=== PATIENT | male | born 1990 | race Caucasian/White ===

== ENCOUNTER 2020-11-02 07:43 | Day surgery (SDC) | payer OTHER ==
[~2020-11-02] VITALS: Ht 177.8 cm; Wt 89.4 kg
[~2020-11-02 07:43] MED LIST: NS 1,000 ML IV ONE; OMEP40CA97 PO
[2020-11-02] MEDS ORDERED: LIDOCAINE 2% 100MG/5ML SDV (FOR ANES.) As Ordered ONE (08:22)
[2020-11-02] MEDS ORDERED: propofoL 200 MG/20 ML VIAL As Ordered ONE (08:22)
--- NOTE | 2020-11-02 08:25 | ROOR ---
Patient Name: Cody Lock Procedure Date: 11/02/2020 8:13 AM Date of : 1990 Age: 30 Room: [facility] Gender: Male Note Status: Finalized Procedure: Upper Endoscopy + Biopsies Indications: Epigastric abdominal pain, Nausea Providers: John Gilbert MD Referring MD: ARI HANCOCK MD Requesting Provider: Medicines: Monitored Anesthesia Care Complications: No immediate complications. Procedure: Pre-Anesthesia Assessment: - The heart rate, respiratory rate, oxygen saturations, blood pressure, adequacy of pulmonary ventilation, and response to care were monitored throughout the procedure. The Endoscope was introduced through the mouth, and advanced to the second part of duodenum. The upper GI endoscopy was accomplished without difficulty. The patient tolerated the procedure well. Findings: The Z-line was regular and was found 40 cm from the incisors. No other significant abnormalities were identified in a careful examination of the stomach. Biopsies were taken with a cold forceps in the gastric antrum for Helicobacter pylori testing. The exam of the duodenum was otherwise normal. Impression: - Z-line regular, 40 cm from the incisors. - Biopsies were taken with a cold forceps for Helicobacter pylori testing. - The examination was otherwise normal. Recommendation: - Patient has a contact number available for emergencies. The signs and symptoms of potential delayed complications were discussed with the patient. Return to normal activities tomorrow. Written discharge instructions were provided to the patient. - High fiber diet. - Discharge patient to home. - Follow an antireflux regimen. - Continue present medications. - Await pathology results. - Telephone GI clinic for pathology results in 1 week. - Return to referring physician. - The findings and recommendations were discussed with the patient. Procedure Code(s): --- Professional --- 85083, Esophagogastroduodenoscopy, flexible, transoral; with biopsy, single or multiple Diagnosis Code(s): --- Professional --- R10.13, Epigastric pain R11.0, Nausea CPT copyright 2019 [employer] [place] [employer]. All rights reserved. The codes documented in this report are preliminary and upon field agronomist review may be revised to meet current compliance requirements. John Gilbert MD John Gilbert MD 11/02/2020 8:25:26 AM Electronically signed by John Gilbert MD Number of Addenda: 0 Note Initiated On: 11/02/2020 8:13 AM Estimated Blood Loss: Estimated blood loss: none.
[2020-11-02 08:45] VITALS: BP 123/58
== END 2020-11-02 09:02 | disposition home or self-care (01) ==
LOC: M OPP 07:43
PROVIDERS: ATTEND Internal Medicine Gastroenterology
DX: R10.2 Pelvic and perineal pain (principal); R11.0 Nausea

== ENCOUNTER 2020-11-04 20:49 | Emergency (ER) | payer OTHER ==
[~2020-11-04] VITALS: Ht 175.3 cm; Wt 90.9 kg
[~2020-11-04 20:49] MED LIST changes: -NS 1,000 ML IV ONE
[2020-11-04 20:50] VITALS: BP 163/89
[2020-11-04 21:28] LABS: BASO % 0.4 % (0.0-1.0); EOS # 0.1 10^3/uL (0.0-0.5); EOS % 1.6 % (0.0-3.0); HEMOGLOBIN 15.1 g/dl (13.5-17.5); LYMPH # 2.3 10^3/uL (1.5-5.0); LYMPH % 32.5 % (24.0-44.0); MEAN CORPUSCULAR HEMOGLOBIN 28.5 pg (27.0-33.0); MEAN CORPUSCULAR HGB CONC 33.6 g/dl (32.0-36.5); MEAN CORPUSCULAR VOLUME 85.1 fl (80.0-96.0); MONO # 0.6 10^3/uL (0.0-0.8); MONO % 7.8 % (0.0-5.0); NEUTROPHILS % 57.6 % (36.0-66.0); PLATELET COUNT, AUTOMATED 179 10^3/uL (150-450); RED BLOOD COUNT 5.29 10^6/uL (4.30-6.10)
[2020-11-04 21:57] LABS: ALBUMIN 4.9 GM/DL (3.2-5.2); ALT/SGPT 22 U/L (12-78); BILIRUBIN,DIRECT < 0.1 MG/DL (0.0-0.2); BILIRUBIN,TOTAL 0.4 MG/DL (0.2-1.0); LIPASE 89 U/L (73-393); TOTAL PROTEIN 7.5 GM/DL (6.4-8.2)
--- OUTSIDE RECORDS SUMMARY | 2020-11-04 22:45 | CCD | Continuity of Care Document ---
Author Author Cody GILBERT M.D. Organization Unknown Address [address] [place] [id number] Phone [phone] Care Team Providers Care Overhead Irrigator Name Role Phone Doug Liang [facility] [phone] Problems Active Problems Provider Date Nausea John Gilbert M.D. Onset: 10/22/19 21 Social History Type Date Description Comments Sex Unknown ETOH Use Occasionally Tobacco Use Start: Unknown Patient has never smoked Allergies, Adverse Reactions, Alerts Description No Known Drug Allergies Medications Active Medications SIG Qnty Indications Ordering Provide r Date Omeprazole 40mg Capsules DR 1 cap by mouth every morning 90caps John Gilbert M.D. [address] Peres Immunizations Description No Information Available Vital Signs Date Vital Result Comment 10/22/2020 9:28am Height 70 inches 5'10" Weight 199.00 lb BP Systolic 133 mmHg BP Diastolic 75 mmHg Heart Rate 71 /min BMI (Body Mass Index) 28.6 kg/m2 Weight 90.266 kg Body Temperature 97.9 F Results Description No Information Available Procedures Description No Information Available Medical Devices Description No Information Available Encounters Type Date Location Provider Dx Diagnosis Office Visit 10/22/2020 9:00a Main Office John Gilbert M.D. R 12 Heartburn Assessments Date Code Description Provider 10/22/2020 R12 Heartburn John carter M.D. Plan of Treatment Future Appointment(s):* 11/02/2020 10:00 am - John Gilbert M.D. 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 Positive epigastric discomfort. No vomiting. Positive nausea. He is improved on a ppi. Plan:1. Egd + bx.2. Omeprazole 40 mgs po qam. Functional Status Description No Information Available Mental Status Description No Information Available Referrals Refer to Reason for Referral Status Appt Date John Gilbert M.D. Created [address] [place] [id number] [phone]
--- OUTSIDE RECORDS SUMMARY | 2020-11-04 22:45 | CCD | Continuity of Care Document ---
Author Author Cody GILBERT M.D. Organization Unknown Address [address] [place] [id number] Phone [phone] Care Team Providers Care Antenna Installer Name Role Phone Doug Li[facility] Problems Active Problems Provider Date Nausea John [...] Medical Devices Description No Information Available Encounters Description No Information Available Assessments Date Code Description Provider 10/22/2020 R12 [...] Description No Information Available Referrals Refer to Dr Reason for Referral Status Appt Date John Gilbert M.D. Created [address] [place] [address] [phone]
--- OUTSIDE RECORDS SUMMARY | 2020-11-04 22:45 | CCD ---
Author [facility] Organization [facility] Address Unknown Phone Unavailable Care Team Providers Care Implementation Services Analyst Name Role Phone Edna Gilbert MD Unavailable Unavailable Edna Gilbert MD Unavailable Unavailable Edna Gilbert MD Unavailable Unavailable Edna Gilbert MD Unavailable Unavailable Edna Gilbert MD Unavailable Unavailable Edna Gilbert MD Unavailable Unavailable Edna Gilbret MD Unavailable Unavailable Edna Gilbert MD Unavailable Unavailable Edna Gilbert MD Unavailable Unavailable Edna Gilbert MD Unavailable Unavailable Edna Gilbert MD Unavailable Unavailable Edna Gilbert MD Unavailable Unavailable Edna Gilbert MD Unavailable Unavailable Edna Gilbert MD Unavailable Unavailable Edna Gilbert MD Unavailable Unavailable Edna Gilbert MD Unavailable Unavailable Edna Gilbert MD Unavailable Unavailable Edna Gilbert MD Unavailable Unavailable Edna Gilbert MD Unavailable Unavailable Edna Gilbert MD Unavailable Unavailable Edna Gilbert MD Unavailable Unavailable Edna Gilbert MD Unavailable Unavailable Edna Gilbert MD Unavailable Unavailable Edna Gilbert MD Unavailable Unavailable Edna Gilbert MD Unavailable Unavailable Edna Gilbert MD Unavailable Unavailable Edna Gilbert MD Unavailable Unavailable Edna Gilbert MD Unavailable Unavailable Edna Gilbert MD Unavailable Unavailable Edna Gilbert MD Unavailable Unavailable Edna Gilbert MD Unavailable Unavailable Edna Gilbert MD Unavailable Unavailable Edna Gilbert MD Unavailable Unavailable Edna Gilbert MD Unavailable Unavailable Edna Gilbert MD Unavailable Unavailable Edna Gilbert MD Unavailable Unavailable Ofelia, S John MD Unavailable Unavailable Ofelia, S John MD Unavailable Unavailable Ofelia, S John MD Unavailable Unavailable Ofelia, S John MD Unavailable Unavailable Ofelia, S John MD Unavailable Unavailable Ofelia, S John MD Unavailable Unavailable Ofelia, S John MD Unavailable Unavailable Ofelia, S John MD Unavailable Unavailable Ofelia, S John MD Unavailable Unavailable Ofelia, S John MD Unavailable Unavailable Ofelia, S John MD Unavailable Unavailable Ofelia, S John MD Unavailable Unavailable Cristina, J Hollis PA-C Unavailable Unavailable Cristina, J Hollis PA-C Unavailable Unavailable Cristina, J Hollis PA-C Unavailable Unavailable Cristina, J Hollis PA-C Unavailable Unavailable Cristina, J Hollis PA-C Unavailable Unavailable Cristina, J Hollis PA-C Unavailable Unavailable Cristina, J Hollis PA-C Unavailable Unavailable Cristina, J Hollis PA-C Unavailable Unavailable Cristina, J Hollis PA-C Unavailable Unavailable Cristina, J Hollis PA-C Unavailable Unavailable Cristina, J Hollis PA-C Unavailable Unavailable Re-disclosure Warning The records that you are about to access may contain information from federally-assisted alcohol or drug abuse programs. If such information is present, then the following federally mandated warning applies: This information has been disclosed to you from records protected by federal confidentiality rules (42 CFR part 2). The federal rules prohibit you from making any further disclosure of this information unless further disclosure is expressly permitted by the written consent of the person to whom it pertains or as otherwise permitted by 42 CFR part 2. A general authorization for the release of medical or other information is NOT sufficient for this purpose. The Federal rules restrict any use of the information to criminally investigate or prosecute any alcohol or drug abuse patient.The records that you are about to access may contain highly sensitive health information, the redisclosure of which is protected by Article 27-F of the [facility] Public Health law. If you continue you may have access to information: Regarding HIV / AIDS; Provided by facilities licensed or operated by the [facility] Office of Mental Health; or Provided by the [facility] Office for People With Developmental Disabilities. If such information is present, then the following [facility] mandated warning applies: This information has been disclosed to you from confidential records which are protected by state law. State law prohibits you from making any further disclosure of this information without the specific written consent of the person to whom it pertains, or as otherwise permitted by law. Any unauthorized further disclosure in violation of state law may result in a fine or skilled nursing sentence or both. A general authorization for the release of medical or other information is NOT sufficient authorization for further disc losure. Encounters Encounter Providers Location Date Indications Data Source(s ) Outpatient Attender: John Gilbert MD Main Office 10/22/2020 08:00:00 AM EST [facility] ([facility]) Emergency Attender: Hollis Evans PA-C 02:49:00 PM EST - 09/01/2020 05:50:00 PM [facility] Patient discharged. Medications Medication Brand Name Start Date Product Form Dose Route Admi nistrative Instructions Pharmacy Instructions Status Indications Reaction Description Data Source(s) Omeprazole 40 MG Delayed Release Oral Capsule Omeprazole 10/22/2020 12:00:00 AM EST [facility] Esomeprazole 40 MG Delayed Release Oral Capsule ESOMEPRAZOLE MAGNESIUM 09/11/2020 12:00:00 AM EST capsule,delayed release(DR/EC) 30 TAKE ONE CAPSULE BY MOUTH EVERY DAY TAKE ONE CAPSULE BY MOUTH EVERY DAY SOLD: 09/11/2020 [facility] Insurance Providers Payer name Policy type / Coverage type Policy ID Covered republican ID Covered republican's relationship to rosales Policy Rosales Plan Information [facility] ACTIVE DUTY [id number] SP [id number] [facility] HUMANA - O/P [id number] Problems, Conditions, and Diagnoses Code Display Name Description Problem Type Effective Dates Data Source(s) 651270252 Nausea Nausea Problem 10/22/2020 12:00:00 AM ES T [facility] ([facility]) U071 COVID-19 COVID-19 Diagnosis 09/01/2020 02:49:00 PM ES T [facility] Results ID Date Data Source [id number] 11/02/2020 08:24:00 AM EST [facility] ([facility]) Name Value Range Interpretation Code Description Data Becka rce(s) Supporting Document(s) Surgical pathology study Laboratory test result [facility] ([facility]) FINAL DIAGNOSIS Stomach, antrum, biopsy: Gastric mucosa, without significant inflammatory activity. 11/03/2020 - 1125 CLINICAL DIAGNOSIS Nausea, abdominal tightness 11/02/2020 - 1308 GROSS DIAGNOSIS Received in formalin labeled "biopsy antrum" is 0.5 x 0.2 x 0.2 cm. aggregate of mucosal fragments. All in one. - 11/02/20201307 Signed Briana Naidu MD 11/03/2020 1501 ID Date Data Source [id number] 10/28/2020 09:30:00 AM EST [facility] Name Value Range Interpretation Code Description Data Becka rce(s) Supporting Document(s) SARS coronavirus 2 RNA Not Detected [facility] This lab was ordered by [facility] Laboratory and reported by [facility]. ID Date Data Source [id number] 09/02/2020 08:07:00 [place] [address] RESPIRATORY CARE REPORT ==== ---------NAME------- NUMBER SEX AGE ADMIT DISC. XRAY# F/C TYPECHATO QUINTEN [id number] M 30 09/01/20 09/01/20 [id number] SB4 E/R DATE OF : 1990 M/R# [id number] #: [id number] TR-1B LOCATION: EMERGENCY DEPT [facility] [address] COMPLE TE:09/02/20 03:04 T 91176 PHYSICIAN: CRISTINA LIANG CH Name Value Range Interpretation Code Description Data Becka rce(s) Supporting Document(s) ID Date Data Source [id number] 09/01/2020 02:49:00 PM [facility] 1 OrderSheet [facility] Emergency Department [address] [place] [address] Phone #: ext- [phone] 09/01/2020 14:48 Patient: QUINTEN REIS Sex: M : 1990 Age: 30yWEIGHT:95.2 kg (S) HEIGHT:69 inches (S) BMI:31.0ALLERGIES: No Known Drug AllergyCHIEF COMPLAINT: muscle aches, known, COVID-19 exposure:DIAGNOSIS: Severe acute respiratory syndrome coronavirusLAB ORDERSOrder Description Priority Entered Acknowledged InitialedCBC w Diff STAT 15:34 09/01/2020 16:20 Sterling Doug Liang research manager, Jayce ER P.A.-C; [id number] STAT 15:34 09/01/2020 16:20 Sterling Doug Liang research manager, Jayce ER P.A.-C; Zefu1RLM STAT 15:34 09/01/2020 16:20 Sterling Doug Liang research manager, Jayce ER P.A.-C; Npbu4Euufgarn-H STAT 15:34 09/01/2020 16:20 Sterling Doug Liang research manager, Jayce ER P.A.-C; [id number] STUDY ORDERSOrder Description Priority Entered Acknowledged Initial edMEDICATION/IV/DRIP/FLUID ORDERSOrder Description Priority Entered Acknowledged InitialedTylenol 1 g PO X1 15:34 09/01/2020 16:24 Dorisdose: 1000 mg Doug Angela RN(NOW x1) P.A.-C;Ativan PO 1 mg 15:34 020 16:23 Henrietta Angela RN P.A.-C;IV NS : Bolus 500 15:34 09/01/2020 16:25 DorismL, then 75 mL/hr Doug Angela RN P.A.-C;GENERAL ORDERSOrder Description Priority Entered Acknowledged InitialedNPO 15:34 09/01/2020 Initialed: 16:24 Henrietta Angela RN 2 OrderSheet [facility] Emergency Department [address] [place] [address] Phone #: ext- [phone] 09/01/2020 14:48 Patient: QUINTEN REIS Sex: M : 1990 Age: 30y Doug Liang Cancelled: Other 16:24 Doug Elkins; Azul MominCEKG 15:34 09/01/2020 16:20 Sterling Doug Liang research manager, Jayce LIRIANO P.A.-C; Iroc2Rmktbnh Monitor 15:34 09/01/2020 16:20 Sterling(continuous) Doug Liang research manager, Jayce LIRIANO P.A.-C; Gwym5Stkrw oximeter 15:34 09/01/2020 16:20 Sterling(Continuous) Doug Liang research manager, Jayce MominC; Wedu3Wsujva Lock 15:34 09/01/2020 16:24 Henrietta Angela RN, P.A.-C;[Electronically signed by Henrietta Angela RN (17:56 09/01/2020)][Electronically signed by Doug Liang P.A.-C (20:48 09/01/2020)][Electronically locked by Henrietta Angela RN (17:56 09/01/2020)] Name Value Range Interpretation Code Description Data Becka rce(s) Supporting Document(s) ID Date Data Source [id number] 09/01/2020 02:49:00 PM EST [facility] 1 Medication Reconciliation Report [facility] Emergency Department [address] [place] [address] Phone #: ext- [phone] 09/01/2020 14:48 Patient: QUINTEN REIS Sex: M : 1990 Age: 30yWeight: 95.2 kgHeight/Length: 69 in.BMI: 31.0ALLERGIES: No Known Drug AllergyThe patient's Home Medications are listed below:NONE.The source(s) of the original Home Medication information:patientThe following Medications were given to the patient in the Emergency Department:Ativan [PO] PO 1 mg, administered: 09/01/2020 4:00:00 PMTylenol [PO] PO 1000 mg, administered: 09/01/2020 4:00:00 PMIV NS IV Fluids bolus 500 mL over 30 minute(s), then 75 mL/hr, administered: 09/01/2020 4:05:00 PMThe following Medications were prescribed to the patient:None. Name Value Range Interpretation Code Description Data Becka rce(s) Supporting Document(s) ID Date Data Source [id number] 09/01/2020 02:49:00 PM EST [facility] 1 Medication Administration Record [facility] Emergency Department [address] [place] [address] Phone #: [phone] 09/01/2020 14:48 Patient: QUINTEN REIS Sex: M : 1990 Age: 30yWeight: 95.2 kgHeight/Length: 69 inBMI: 31ALLERGIES: No Known Drug Allergy Date/Time Medication Administered Medication OrderedGiven TYLENOL [PO] (APAP) Tylenol 1 g PO X1 dose: 1000 mg16:00 09/01/2020 Dose: 1000 mg Tablets PO (NOW x1)Henrietta Angela RNGisybil ATIVAN [PO] (LORAZEPAM) Ativan PO 1 mg16:00 09/01/2020 Dose: 1 mg Tablets Perry Leyva IV NS IV NS : Bolus 500 mL, then 7516:05 09/01/2020 Dose: IV Fluids mL/hrHenrietta Angela RN Rate: 75 mL/hr over 5 hour(s)---- Bolus: 500 mL over 30 minute(s)Stop Dispensed: 1000 mL bag17:45 09/01/2020 Site: #1 right CHRISjose HUGO Angela Name Value Range Interpretation Code Description Data Becka rce(s) Supporting Document(s) ID Date Data Source [id number] 09/01/2020 02:49:00 PM EST [facility] 1 General Instructions [facility] Emergency Department [address] [place] [address] Phone #: ext- [phone] 09/01/2020 14:48 Patient: QUINTEN REIS Sex: M : 1990 Age: 30y Coronavirus COVID-19.INSTRUCTIONS Take Tylenol (Acetaminophen) or Motrin (Ibuprofen) as needed for fever control. Take medication according to label instructions. Rest at home for one weeks (You are on a self quarantine for apprixiamtely another 1 week. You indicated that you had a (+) COVID last week. You may need to self quarantine for 14 days from the positive results.). Drink plenty of fluids. (You are on a self quarantine for apprixiamtely another 1 week. You indicated that you had a (+) COVID last week. You may need to self quarantine for 14 days from the positive results. I recommend to purchase a small finger pulse oximeter to monitor your O2 saturation at home. If becomes too low (<90%), please contact your PCP or return to the ER. Recommend to utilize OTC Motrin and Tylenol to control inflammation and pain management. Recommend to follow the instructions on the bottle and not to exceed.). Warnings: Further evaluation is necessary. GENERAL WARNINGS: Return or contact your physician immediately if your condition worsens or changes unexpectedly, if not improving as expected, or if other problems arise. Your Current Medications: . No home medication. Follow-up: Return to the emergency department as needed. Follow up with your healthcare provider in about two days if not better. Call for an appointment. Understanding of the discharge instructions verbalized by patient. ADDITIONAL INFORMATION Prevention steps for People with confirmed or suspected COVID-19 (including persons under investigation) who do not need to be hospitalized 2 General Instructions [facility] Emergency Department [address] [place] [address] Phone #: ext- [phone] 09/01/2020 14:48 Patient: QUINTEN REIS Sex: M : 1990 Age: 30y And People with confirmed COVID-19 who were hospitalized and determined to be medically stable to go home Your healthcare provider and public health staff will evaluate whether you can be cared for at home. If it isdetermined that you do not need to be hospitalized and can be isolated at home, you will be [facility] or [facility]. You should follow the prevention steps below until a healthcare provider [facility] or [facility] health department says you can return to your normal activities. Stay home except to get medical care People who are mildly ill with COVID-19 are able to isolate at home during their illness. You should restrict activities outside yourhome, except for getting medical care. Do not go to work, school, or public areas. Avoid using public transportation, ride-sharing, ortaxis. Separate yourself from other people and animals in your home People: As much as possible, you should stay in a specificroom and away from other people in your home. Also, you should use a separate bathroom, if available.Animals: You should rest rict contact with pets and other animals while you are sick with COVID-19, just like you would around otherpeople. Although there have not been reports of pets or other animals becoming sick with COVID-19, it is still recommended thatpeople sick with COVID-19 limit contact with animals until more information is known about the virus. When possible, have anothermember of your household care for your animals while you are sick. If you are sick with COVID-19, avoid contact with your pet,including petting, snuggling, being kissed or licked, and sharing food. If you must care for your pet or be around animals while you aresick, wash your hands before and after you interact with pets and wear a facemask. See https://www.cdc.gov/coronavirus/2019-ncov/faq.html#3898-zJdI-opc-animals for more information. Call ahead before visiting your doctor If you have a medical appointment, call the healthcare provider and tell them that you have or may have COVID-19. This will helpthe healthcare provider's office take steps to keep other people from getting infected or exposed. Wear a facemask You should wear a facemask when you are around other people {e.g., sharing a room or vehicle} or pets and before you enter [facility] provider's office. If you are not able to wear a facemask {for example, because it causes trouble breathing}, thenpeople who live with you should not stay in the same room with you, or they should wear a facemask if they enter your room. Cover your coughs and sneezes Cover your mouth and nose with a tissue when you cough or sneeze. Throw used tissues in a lined trash can. Immediately washyour hands with soap and water for at least 20 seconds or, if soap and water are not available, clean your hands with analcohol-based hand principal embedded software engineer that contains at least 60% alcohol. Clean your hands often Wash your hands often with soap and water for at least 20 seconds, especially after blowing your nose, coughing, or sneezing;going to the bathroom; and before eating or preparing food. If soap and water are not readily available, use an alcohol-based handsanitizer with at least 60% alcohol, covering all surfaces of your hands and rubbing them together until they feel dry. Soap and water are the best option if hands are visibly dirty. Avoid touching your eyes, nose, and mouth with unwashedhands. Flu Like Symptoms / Coronavirus Exposure - 30a Page 1 of 2 Avoid sharing personal household items You should not share dishes, drinking glasses, cups, eating utensils, towels, or bedding with other people or pets in yourhome. After using these items, they should be washed thoroughly with soap and water. Clean all "high- touch" surfaces everyday 3 General Instructions [facility] Emergency Department [address] [place] [address] Phone #: ext- [phone] 09/01/2020 14:48 Patient: QUINTEN REIS Sex: M : 1990 Age: 30yHigh touch surfaces include counters, tabletops, doorknobs, bathroom fixtures, toilets, phones, keyboards, tablets, and bedsidetables. Also, clean any surfaces that may have blood, stool, or body fluids on them. Use a household cleaning spray or wipe,according to the label instructions.Labels contain instructions for safe and effective use of the cleaning product including precautions you should take when applyingthe product, such as wearing gloves and making sure you have good ventilation during use of the product.Monitor your symptomshttps://www.tsystem.com/index.php Seek prompt medical attention if your illness is worsening {e.g., difficulty breathing}. Before seeking care, call your healthcareprovider and tell them that you have, or are being evaluated for, COVID-19. Put on a facemask before you enter the facility.These steps will help the healthcare provider's office to keep other people in the office or waiting room from getting infected orexposed. Ask your healthcare provider to call the local or state health department. Persons who are placed under activemonitoring or facilitated self- monitoring should follow instructions provided by their local health department or occupational healthprofessionals, as appropriate. When working with your local health department check their available hours.If you have a medical emergency and need to call 911, notify the dispatch personnel that you have, or are being evaluated forCOVID-19. If possible, put on a facemask before emergency medical services arrive.Discontinuing home isolationPatients with confirmed COVID-19 should remain under home isolation precautions until the risk of secondary transmission toothers is thought to be low. The decision to discontinue home isolation precautions should be made on a wydp-rn-mnax basis, inconsultation with healthcareproviders and state and local health departments.Contacts 2020 [employer].Online inf ormationhttps://www.cdc.gov/coronavirus/2019-ncov/about/index.html Content source: National Center for Immunization and Respiratory Diseases (NCIRD), Division of Viral Diseases Recommended precautions for household members, intimate partners, and caregivers in a nonhealthcare setting1 of 4 General Instructions [facility] Emergency Department [address] [place] [address] Phone #: [phone]- [phone] 09/01/2020 14:48 Patient: QUINTEN REIS Sex: M : 1990 Age: 30y A patient with symptomatic laboratory-confirmed COVID-19 or A patient under investigationHousehold members, intimate partners, and caregivers in a nonhealthcare setting may have close contact2 with aperson with symptomatic, laboratory-confirmed COVID-19 or a person under investigation. Close contacts shouldmonitor their health; they should call their healthcare provider right away if they develop symptoms suggestive of COVID-19 {e.g., fever, cough, shortness of breath} {see Interim [place] Guidance for Risk Assessment and Public Health Management of Persons with Potential Coronavirus Disease 2019 {COVID-19} Exposure in Travel-associated or Community Settings.}Close contacts should also follow these recommendations: Make sure that you understand and can help the patient follow their healthcare provider's instructions for medication{s} and care. You should help the patient with basic needs in the home and provide support for getting groceries, prescriptions, and other personal needs. Monitor the patient's symptoms. If the patient is getting sicker, call his or her healthcare provider and tell them that the patient has laboratory-confirmed COVID-19. This will help the healthcare provider's office take steps to keep other people in the office or waiting room from getting infected. Ask the healthcare provider to call the local or state health department for additional guidance. If the patient has a medical caroline rgency and you need to call 911, notify the dispatch personnel that the patient has, or is being evaluated for COVID-19. Household members should stay in another room or be from the patient as much as possible. Household members should use a separate bedroom and bathroom, if available. Prohibit visitors who do not have an essential need to be in the home. Household members should care for any pets in the home. Do not handle pets or other animals while sick. For more information, see COVID-19 and Animals. Make sure that shared spaces in the home have good air flow, such as by an air conditioner or an opened window, weather permitting. Perform hand hygiene frequently. Wash your hands often with soap and water for at least 20 seconds or use an alcohol-based hand principal embedded software engineer that contains 60 to 95% alcohol, covering all surfaces of your hands and rubbing them together until they feel dry. Soap and water should be used preferentially if hands are visibly dirty.Avoid touching your eyes, nose, and mouth with unwashed hands. The patient should wear a facemask when around other people, except when unable {for example, because it causes trouble breathing}. You, as the caregiver should always wear a mask, regardless if the patient has one on or not whenever you are in the same room as the patient. Wear a disposable facemask and gloves when you touch or have contact with the patient's blood, stool, or body fluids, such as saliva, sputum, nasal mucus, vomit, urine. Throw out disposable facemasks and gloves after using them. Do not reuse. When removing personal protective equipment, first remove and dispose of gloves. Then, immediately clean your hands with soap and water or alcohol-based hand principal embedded software engineer. Next, remove and dispose of facemask, and immediately clean your hands again with soap and water or alcohol-based hand principal embedded software engineer. Avoid sharing household items with the patient. You should not share dishes, drinking glasses, cups, eating utensils, towels, bedding, or other items. After the patient uses these items, you should wash them thoroughly {see below "Wash laundry thoroughly"}. Flu Like Symptoms / Coronavirus Exposure - 30a Page 2 of 2 Clean all "high-touch" surfaces, such as counters, tabletops, doorknobs, bathroom fixtures, toilets, phones, keyboards, tablets, and bedside tables, every day. Also, clean any surfaces that may have blood, stool, or body fluids on them. Use a household cleaning spray or wipe, according to the label instructions. Labels contain instructions for safe and effective use of the cleaning product including precautions you should take when applying the product, such as 5 General Instructions [facility] Emergency Department [address] [place] [address] Phone #: ext- [phone] 09/01/2020 14:48 Patient: QUINTEN REIS Sex: M : 1990 Age: 30y wearing gloves and making sure you have good ventilation during use of the product. Wash laundry thoroughly. Immediately remove and wash clothes or bedding that have blood, stool, or body fluids on them. Wear disposable gloves while handling soiled items and keep soiled items away from your body. Clean your hands {with soap and water or an alcohol-based hand principal embedded software engineer} imme diately after removing your gloves. https://www.Innoz/index.php Read and follow directions on labels of laundry or clothing items and detergent. In general, using a normal laundry detergent according to washing machine instructions and dry thoroughly using the warmest temperatures recommended on the clothing label. Place all used disposable gloves, facemasks, and other contaminated items in a lined container before disposing of them with other household waste. Clean your hands {with soap and water or an alcohol-based hand principal embedded software engineer} immediately after handling these items. Soap and water should be used preferentially if hands are visibly dirty. Discuss any additional questions with your state or local health department or healthcare provider. Check available hours when contacting your local health department.Contacts 2019 [employer].Online information https://www.cdc.gov/coronavirus/2019-ncov/about/index.htmlContent source: National Center for Immunization and Respiratory Diseases (NCIRD), Division of Viral DiseasesFootnotes 1Home healthcare personnel should refer to I [place] Infection Prevention and Control Recommendations for Patients with Known or Patients Under Investigationfor Coronavirus Disease 2019 (COVID-19) in a Healthcare Setting. 2Close contact is defined as-1. being within approximately 6 feet (2 meters) of a COVID-19 case for a prolonged period of time; close contact can occur while caring for, living with, visiting, or sharing a health care waiting area or room with a COVID-19 case - or -2. having direct contact with infectious secretions of a COVID-19 case (e.g., being coughed on 6 General Instructions [facility] Emergency Department [address] [place] [address] Phone #: ext- [phone] 09/01/2020 14:48 Patient: QUINTEN REIS Sex: M : 1990 Age: 30y You have been given the following additional information: COVID-19 Rest at home for one weeks (You are on a self quarantine for apprixiamtely another 1 week. You indicated that you had a (+) COVID last week. You may need to self quarantine for 14 days from the positive results.).(Electronically signed by Doug Liang P.A.-C 09/01/2020 20:48) Name Value Range Interpretation Code Description Data Becka rce(s) Supporting Document(s) ID Date Data Source [id number] 09/01/2020 02:49:00 PM EST [facility] 1 Clinical Report - Nurses [facility] Emergency Department [address] [place] [address] Phone #: ext- [phone] 09/01/2020 14:48 Patient: QUINTEN REIS Sex: M : 1990 Age: 30yTRIAGEHistorian: patient. Unaccompanied.Triage time: 14:51 09/01/2020. Acuity: LEVEL 4.( Pt states thinks he may have ingested more sodium than should have. However, denies having ingestedany gross amounts of sodium. Reports irritability, feeling fast heart rate a few days ago, RIZVI, dry mouth.Denies rapid heart rate today. States just wants to get checked out.).SEPSIS SCREEN: SIRS Screen negative. Sepsis Screen negative. No suspected or confirmed signs ofinfection present. --15:04 09/01/20 Emmanuel Mcdowell4:51 09/01/20. BP: 145/78. MAP: 100. HR: 88. RR: 16. O2 saturation: 100% on room air. Temp: 98.4 F(oral). Pain level now: 11/25. --15:04 09/01/20 Loan Mcdowell Complaint: HEADACHE. --15:04 09/01/20 Jose Mcdowell.Weight: 95.2 kg stated. Height/Length: 69 inches Per Patient. BMI: 31. --14:51 09/01/20 Jose Mcdowell.MedicationsNone. --14:55 09/01/20 Jose Mcdowell.AllergiesNo Known Drug Allergy. --14:55 09/01/20 Jose Mcdowell.PROBLEMS:COVID-19. --14:56 09/01/20 Jose Mcdowell.Medication/allergy information source: the patient. --15:04 09/01/20 Jose Mcdowell.ADDITIONAL SURGERIES:Righ t knee sx. --14:56 09/01/20 Jose Mcdowell.HistorySOCIAL HX: Never smoker. No alcohol use or drug use. He was offered HIV testing but declined.Patient education was provided. He was offe red hepatitis C testing but declined. Patient education wasprovided. He has not traveled outside the [place]Infectious disease exposure: The patient was exposed to Coronavirus. Patient is not a known carrier oftuberculosis, hepatitis, HIV, MRSA or VRE. Patient is not a known carrier of CRE.SELF HARM ASSESSMENT: Self harm assessment was performed. The patient answered "no" to the 2 Clinical Report - Nurses [facility] Emergency Department [address] [place] [address] Phone #: ext- [phone] 09/01/2020 14:48 Patient: QUINTEN REIS Sex: M : 1990 Age: 30y question(s) "Do you have thoughts of harming or killing yourself?", "Do you have a plan for harming or killing yourself?" and "Have you recently had thoughts about harming or killing others?". ABUSE ASSESSMENT: Abuse assessment. The patient had positive responses to the question(s) "Do you feel safe in your home?". Abuse denied. No suspicion of abuse. No report of abuse. NUTRITIONAL RISK ASSESSMENT: The nutritional risk assessment revealed no deficiencies. FUNCTIONAL ASSESSMENT: Functional assessment: no impairments noted. LEARNING NEEDS ASSESSMENT: The learning needs assessment revealed no barriers. FALL RISK ASSESSMENT: Fall risk assessment completed. No risk factors identified. SKIN INTEGRITY ASSESSMENT: Skin integrity risk assessment completed. No skin integrity risk identified. --15:04 09/01/20 Jose Mcdowell. Interve ntions To treatment room. --15:04 09/01/20 Jose Mcdowell.PHYSICAL ASSESSMENTAmbulatory to room. ( Pt reports mild RIZVI, irritability. Pt appears well.).GENERAL / NEURO / PSYCH: Alert. Oriented X 4. Appears in no acute distress.RESPIRATORY: Respirations not labored. Chest nontender. Breath sounds within normal limits.CVS: Capillary refill less than 2 seconds. --15:12 09/01/20 Jose Mcdowell.NURSING PROGRESS NOTES14:51 09/01/20. Head of bed elevated. Two patient identifiers checked. Call light placed in reach. Bedplaced in lowest position. Brakes of bed on. Patient ready for evaluation- PA notified. --15:22 09/01/20Henrietta Angela RN 15:58 09/01/20. Patient ID band checked for patient name and birthdate: patient confirmed. Instructions provided to collect clean catch urine and patient verbalized understanding. Clean catch urine collected with return of yellow-colored clear urine; sample sent to lab for urinalysis and culture. Specimen labeled in the presence of the patient (Voided in urinal at [facility]). --17:19 09/01/20 Henrietta Angela RN 16:00 09/01/2020 Ativan (LORazepam) PO Tablets 1 mg given. Allergies verified and confirmed 5 rights. Information reviewed with patient including reason for taking this medication, signs of allergic reaction, precautions and sedative warning. Verbalizes understanding. --16:23 09/01/20 Henrietta Angela RN 16:00 09/01/2020 Tylenol (APAP) PO Tablets 1000 mg given. Allergies verified and confirmed 5 rights. Information reviewed with patient including reason for taking this medication, signs of allergic reaction and precautions. Verbalizes understanding. --16:24 09/01/20 Henrietta Angela RN 3 Clinical Report - Nurses [facility] Emergency Department [address] [place] [address] Phone #: ext- [phone] 09/01/2020 14:48 Patient: QUINTEN REIS Sex: M : 1990 Age: 30y 16:05 09/01/2020 Site #1 started via IV in the right antecubital space with an 20g angiocath, with aseptic technique and good blood return; one attempt. Blood drawn: rainbow set. Labeled in the presence of the patient and sent to the lab. Saline lock flushed with 10 mL saline. --16:23 09/01/20 Henrietta Angela RN 16:05 09/01/2020 Started bag #1 1000 mL IV Fluids IV NS; bolus of 500 mL over 30 minute(s) then at 75 mL/hr over 5 hour(s) via site #1 via IV pump. Allergies verified and confirmed 5 rights. IV patency established. IV site checked: no pain, redness, or swelling. IV flushed thoroughly pre- and post-medication administration. Information reviewed with patient including reason for taking this medication, signs of allergic reaction and precautions. Verbalizes understanding. --16:25 09/01/20 Henrietta Angela RN 16:10 09/01/20. Reassessment after medication administered and fluids administered. He reports no complaints and he has had no adverse reaction. RESPIRATORY: No respiratory distress. --17:09/01/20 Henrietta Angela RN EKG time: (15:58 09/01/2020). EKG was ordered, performed by a nurse and shown to the PA. --17:22 09/01/20 Henrietta Angela RN 17:00 09/01/20. Reassessment after fluids administered. He reports no complaints and he is calm and resting quietly. CVS: Cardiac rhythm: normal sinus rhythm; no ectopy noted (72). --17:55 09/01/20 Henrietta Angela RN 17:00 09/01/2020 Tylenol PO Response: no adverse reaction pain is improving. Symptoms have improved the patient feels better. --17:18 09/01/20 Henrietta Angela RN 17:00 09/01/2020 Ativan PO Response: no adverse reaction symptoms have improved the patient feels better. --17:18 09/01/20 Henrietta Angela RN 17:45 09/01/2020 IV Fluids IV NS via IV site #1 Discontinued: bag #1 infused. Total amount infused: 1000 mL. IV patency established. IV site checked: no pain, redness, or swelling. IV flushed thoroughly. --17:55 09/01/20 Henrietta Angela RN.DISPOSITION / DISCHARGE 17:46 09/01/20. BP: 121/66. MAP: 84. HR: 89. RR: 16. O2 saturation: 100% on room air. Temp: 98.3 F. Pain level now: 0/10. --17:54 09/01/20 Henrietta Angela RN 17:45 09/01/2020 Site #1 removed upon discharge. Catheter intact. Manual pressure and bandage applied. --17:54 09/01/20 Henrietta Angela RN 17:50 09/01/20. Cardiac rhythm: normal sinus rhythm; no ectopy noted (89). Condition at departure: improved and stable. No learning barriers present. Discharge instructions provided and reviewed with the patient. Patient verbalized understanding. Written instructions provided in [place]. The patient was discharged home. He left ambulatory and via private vehicle. Spouse driving. --17:54 09/01/20 Henrietta Angela RN. 4 Clinical Report - Nurses [facility] Emergency Department [address] [place] [address] Phone #: ext- [phone] 09/01/2020 14:48 Patient: QUINTEN REIS Sex: M : 1990 Age: 30yLocked/Released at 09/01/2020 17:56 by Henrietta Angela RN Name Value Range Interpretation Code Description Data Becka rce(s) Supporting Document(s) ID Date Data Source [id number] 09/01/2020 02:49:00 PM EST [facility] 1 Clinical Report - Physicians/Mid Levels [facility] Emergency Department [address] [place] [address] Phone #: ext- [phone] 09/01/2020 14:48 Patient: QUINTEN REIS Sex: M : 1990 Age: 30y Time Seen: 15:29 09/01/2020; initial patient contact, initial documentation. Arrived- By private vehicle. Historian- patient. Disposition decision: 17:36 09/01/2020.HISTORY OF PRESENT ILLNESS Chief Complaint: MUSCLE ACHES and known COVID-19 EXPOSURE. This started about 4 days ago and is still present. The patient has had nausea, chest discomfort, nasal congestion and muscle aches. He has had a headache and nasal discharge. No cough, difficulty breathing, chest pain, vomiting or diarrhea. No loss of appetite or sputum production. The patient has had contact with a sick individual. (Pt sts that he tested positive for COVID about a week ago. Sts that since then he has been trying ot eat better to include onions, garlic, and garlic salt. STs that he may have ingested more sodium more than normal on Monday. Sts that he felt that his HR was elevateed and had RIZVI and nausea since monday. Also sts a slight irritability. Sts taht Monday he did not feel well and did nto eat mcuh. Was not until Monday that he started to feel better and able to keep food down. Pt unsure and wanted to get checked out.). Similar symptoms previously. None. Recent medical care: The patient was seen recently in a clinic.REVIEW OF SYSTEMSNo fatigue, weight loss, photophobia, sinus pain or toothache. No weakness, dizziness, palpitations, calfpain or abdominal pain. No bloody stools, urinary incontinence, joint pain, enlarged lymph nodes or tickbite. No back pain. All other systems reviewed and are negative.PAST HISTORYSee nurses notes. Problems: COVID-19. Additional Surgeries: Righ t knee sx. Immunizations: Immunization status is up-to-date. Medications: None. Allergies: No Known Drug Allergy. 2 Clinical Report - Physicians/Mid Levels [facility] Emergency Department [address] [place] [address] Phone #: ext- [phone] 09/01/2020 14:48 Patient: QUINTEN REIS Sex: M : 1990 Age: 30ySOCIAL HISTORYNever smoker. No alcohol use or drug use.ADDITIONAL NOTESThe nursing notes have been reviewed.PHYSICAL EXAMVital Signs: 09/01/2020 14:51 BP: 145/78. MAP: 100. HR: 88. RR: 16. O2 saturation: 100% on room air.Temp: 98.4 F. Pain level now: 11/25. Have been reviewed. Oxygen saturation normal.Appearance: Alert. No acute distress.Eyes: Eyelids appear normal to inspection. Conjunctivae and sclerae appear normal to inspection.Corneas appear normal to inspection. Pupils equal, round and reactive to light and light.Accommodation normal. EOMs intact. Periorbital areas appear normal to inspection. Anteriorchambers clear.ENT: Normal ENT inspection. Airway intact. TM's normal. Ears normal. Nose normal. Nares normal.Pharynx normal. Moist mucous membranes. Uvula midline. Voice normal.Neck: Normal inspection. Neck supple.CVS: Normal heart rate and rhythm. No JVD present. Pulses normal. Capillary refill normal. Strongperipheral pulses. Heart sounds normal. Pulses: right radial 2+; left radial 2+.Respiratory: Chest normal on inspection. No respiratory distress. Unlabored respirations. Lungs clear.Good chest movement. Breath sounds normal and equal. Chest nontender.Abdomen: Normal inspection. Soft and nontender. Bowel sounds normal. No distention.Skin: Skin warm and dry.Extremities: Extremities exhibit normal ROM. No lower extremity edema.Neuro: Awake. Alert. Mood/affect normal. Speech normal. Cranial nerves II through XII intact andnormal (as tested). No cerebellar findings. No motor deficit. Moves all extremities equally. No sensorydeficit. Normal gait. Reflexes normal. Reflex exam: right triceps 2+, left triceps 2+, right biceps 2+, leftbiceps 2+, right brachioradialis 2+ and left brachioradialis 2+.Psych: Cognition normal. Thought process and content normal. Insight and judgement normal.LABS, X-RAYS, AND EKGEKG: Normal EKG. Normal sinus rhythm. Rate: 81. Discussed and reviewed with/by attendign.Laboratory Tests: CBC w Diff: (AV: 09/01/2020 16:06) ( MsgRcvd 09/01/2020 16:58) Final results Test Result Flag Units (Reference) CBC W/AUTOMATED DIFF COMPLETE BLOOD COUNT WBC 8.8 10/uL (4.2 - 11.0) RBC 5.47 10/uL (4.50 - 6.30) HEMOGLOBIN 15.9 g/dL (14.0 - 16.0) HEMATOCRIT 44.5 % (41.0 - 51.0) MCV 81.4 fL (80.0 - 94.0) MCH 29.1 pg (27.0 - 34.0) MCHC 35.7 g/dL (31.0 - 36.0) RDW 11.0 L % (11.5 - 14.8) PLATELETS 275 10/uL (150 - 450) MPV 9.8 fL (7.4 - 10.4) 3 Clinical Report - Physicians/Mid Levels [facility] Emergency Department [address] [place] [address] Phone #: ext- [phone] 09/01/2020 14:48 Patient: QUINTEN REIS Sex: M : 1990 Age: 30y NEUT 79.0 % (37.0 - 80.0) LYMPH 13.5 L % (25.0 - 40.0) MONO 6.7 % (3.0 - 8.0) EOS 0.2 % (0.0 - 7.0) BASO 0.3 % (0.0 - 2.0) %IG 0.3 H % (0.0 - 0.0) %NRBC 0.0 % (0.0 - 0.0) #NEUT 6.93 H 10/uL (2.00 - 6.90) #LYMPH 1.19 10/uL (0.60 - 3.40) #MONO 0.59 10/uL (0.00 - 0.90) #EOS 0.02 10/uL (0.00 - 0.70) #BASO 0.03 10/uL (0.00 - 0.20) #IG 0.03 10/uL (0.00 - 0.10) #NRBC 0.00 10/uL (0.00 - 0.00) MANUAL DIFF NOT INDICATED RBC MORPH NOT INDIC ATEDCMP: (AV: 09/01/2020 16:06) ( MsgRcvd 09/01/2020 17:27) Final results Test Result Flag Units (Reference) COMPREHENSIVE METABOLIC PANEL COMPREHENSIVE METABOLIC PANEL SODIUM 132 L mEq/L (134 - 153) POTASSIUM 3.7 mEq/L (3.6 - 5.0) CHLORIDE 93 L mEq/L (98 - 107) CO2 26 MEQ/L (22 - 30) GLUCOSE 134 H MG/DL (65 - 110) BUN 13 MG/DL (7 - 21) CREATININE 1.1 MG/DL (0.7 - 1.5) BUN/CREAT 12 (8 - 27) TOTAL PROTEIN 7.3 G/DL (6.3 - 8.2) ALBUMIN 4.8 G/DL (3.9 - 5.0) GLOBULIN 2.5 GM/DL (2.4 - 3.2) A/G RATIO 1.9 (0.8 - 2.0) CALCIUM 9.5 MG/DL (8.4 - 10.2) TOTAL BILI <0.7 MG/DL (0.2 - 1.3) ALKALINE PHOS 60 U/L (38 - 126) SGOT/AST 20 U/L (5 - 40) SGPT/ALT 21 U/L (7 - 56) ANION GAP 13.0 mmol/L (8.0 - 16.0) AGE 30 yrs NON- AA GFR >60 mL/min AFR AMER GFR >60 mL/min Male GFR Interprentation 20-49 yrs >60 mL/min [id number] yrs >56 mL/min Normal 60- 69 yrs >49 mL/min Normal 70-79yrs>42 mL/min Normal 80 and above >35 mL/min Normal Female GFRInterpretation 20-39 yrs >60 mL/min Normal 40-49 yrs >58 mL/minNormal 50-59 yrs >51 mL/min Normal 60-69 yrs >45 mL/min [id number] yrs >39 mL/min Normal 80 and above >32 mL/min NormalTSH: (AV: 09/01/2020 16:06) ( MsgRcvd 09/01/2020 17:25) Final results Test Result Flag Units (Reference) TSH 0.89 uIU/mL (0.47 - 5.01)Troponin-T: (AV: 09/01/2020 16:06) ( MsgRcvd 09/01/2020 17:14) Final results * *Test Result Flag Units (Reference) TROPONIN T <0.01 NG/ML (0.00 - 0.10) TROPONIN T0.1 ng/ml Recommended as the clinical threshold value Sheldon T. 4 Clinical Report - Physicians/Mid Levels [facility] Emergency Department [address] [place] [address] Phone #: ext- [phone] 09/01/2020 14:48 Patient: QUINTEN REIS Sex: M : 1990 Age: 30y.PROGRESS AND PROCEDURESCourse of Care: VSS, NAD, AOx3, interacting well and appropriately, no use of accessory muscle, able tospeak full sentences, stable, non-toxic looking. Enter room and pt lying peacefully in bed in NAD. Patient stable. Denies any new issues, concerns, or complaints. Pt is COVID positive and sts that he has questionable sodium intact on Monday and had s/s of RIZVI, thirst, and general malaise and ? chest discomfort. Sts that s/s have improved yesterday, but still slightly present. Pt deneis partaking in recent social media challange ([employer]) where individuals that are COVID (+) ingest multiple substances due to limited taste and smell (salt, onions, cinnamon, etc). Admits to taking as a overall change and body cleanse. Will tx and obtain labs for further eval. Pending results. Reviewed results. Enter room and patient lying peacefully in bed in NAD. Patient stable. Denies any new issues, concerns, or complaints. Discussed results with pt. Discussed tx plan with pt. Discussed and counseled on stable condition. Discussed importance of a f/u with PCP. Discussed return to ER criteria. Answered their questions. Indicates and verbalizes that they understand, agree, and will comply with above. Denies any new questions or concerns. Patient has capacity to understand. Discharge decision based on the following: patient's condition is stable; patient's exam is stable; social support is adequate; transportation is available; follow-up is available. Discussed of OTC Motrin and Tylenol to control inflammation and pain management. Informed to follow directions on bottle that are appropriate for age and/or weight. Disposition: Discharged home in good and improved condition. Condition: good and stable.CLINICAL IMPRESSION Coronavirus COVID-19. 5 Clinical Report - Physicians/Mid Levels [facility] Emergency Department [address] [place] [address] Phone #: ext- [phone] 09/01/2020 14:48 Patient: QUINTEN REIS Sex: M : 1990 Age: 30yINSTRUCTIONS Take Tylenol (Acetaminophen) or Motrin (Ibuprofen) as needed for fever control. Take medication according to label instructions. Rest at home for one weeks (You are on a self quarantine for apprixiamtely another 1 week. You indicated that you had a (+) COVID last week. You may need to self quarantine for 14 days from the positive results.). Drink plenty of fluids. (You are on a self quarantine for apprixiamtely another 1 week. You indicated that you had a (+) COVID last week. You may need to self quarantine for 14 days from the positive results. I recommend to purchase a small finger pulse oximeter to monitor your O2 saturation at home. If becomes too low (<90%), please contact your PCP or return to the ER. Recommend to utilize OTC Motrin and Tylenol to control inflammation and pain management. Recommend to follow the instructions on the bottle and not to exceed.). Warnings: Further evaluation is necessary. GENERAL WARNINGS: Return or contact your physician immediately if your condition worsens or changes unexpectedly, if not improving as expected, or if other problems arise. Your Current Medications: . No home medication. Follow-up: Return to the emergency department as needed. Follow up with your healthcare provider in about two days if not better. Call for an appointment. Understanding of the discharge instructions verbalized by patient.(Electronically signed by Doug Liang P.A.-C 09/01/2020 20:48) Name Value Range Interpretation Code Description Data [facility] rce(s) Supporting Document(s) ID Date Data Source [id number] 09/01/2020 05:27:00 PM EST [facility] Name Value Range Interpretation Code Description Data [facility] rce(s) Supporting Document(s) COMPREHENSIVE METABOLIC PANEL [facility] COMPREHENSIVE METABOLIC PANEL Sodium [Moles/volume] in Serum or Plasma 132 mEq/L 134 - 153 L [facility] Potassium [Moles/volume] in Serum or Plasma 3.7 mEq/L 3.6 - 5.0 [facility] Chloride [Moles/volume] in Serum or Plasma 93 mEq/L 98 - 107 L [facility] Carbon dioxide, total [Moles/volume] in Serum or Plasma 26 MEQ/L 22 - 30 [facility] Glucose [Mass/volume] in Serum or Plasma 134 MG/DL 65 - 110 H [facility] BUN 13 MG/DL 7 - 21 [facility] Creatinine [Mass/volume] in Serum or Plasma 1.1 MG/DL 0.7 - 1.5 [facility] BUN/CREAT 12 8 - 27 [facility] Protein [Mass/volume] in Serum or Plasma 7.3 G/DL 6.3 - 8.2 [facility] Albumin [Mass/volume] in Serum or Plasma 4.8 G/DL 3.9 - 5.0 [facility] Globulin [Mass/volume] in Serum by calculation 2.5 GM/DL 2.4 - 3.2 [facility] A/G RATIO 1.9 0.8 - 2.0 [facility] Calcium [Mass/volume] in Serum or Plasma 9.5 MG/DL 8.4 - 10.2 [facility] Bilirubin.total [Mass/volume] in Serum or Plasma <0.7 MG/DL 0.2 - 1.3 [facility] Alkaline phosphatase [Enzymatic activity/volume] in Serum or Plasma 60 U/L 38 - 126 [facility] Aspartate aminotransferase [Enzymatic activity/volume] in Serum or Plasma 20 U/L 5 - 40 [facility] Alanine aminotransferase [Enzymatic activity/volume] in Seru m or Plasma 21 U/L 7 - 56 [facility] Anion gap 3 in Serum or Plasma 13.0 mmol/L 8.0 - 16.0 [facility] 30 [facility] >60 [facility]/min [facility] ital AFR AMER GFR >60 mL/min [facility] [place] [facility] Male GFR In terprentation 20-49 yrs >60 mL/min Normal 50-59 yrs >56 mL/min Normal 60-69 yrs >49 mL/min Normal 70-79yrs >42 mL/min Normal 80 and above >35 mL/min Normal Female GFR Interpretation 20-39 yrs >60 mL/min Normal 40-49 yrs >58 mL/min Normal 50-59 yrs >51 mL/min Normal 60-69 yrs >45 mL/min Normal 70-79 yrs >39 mL/min Normal 80 and above >32 mL/min Normal ID Date Data Source [id number] 09/01/2020 05:25:00 PM [facility] Name Value Range Interpretation Code Description Data Becka rce(s) Supporting Document(s) Thyrotropin [Units/volume] in Serum or Plasma by Detec tion limit <= 0.05 mIU/L 0.89 uIU/mL 0.47 - 5.01 [facility] ID Date Data Source [id number] 09/01/2020 05:14:00 PM [facility] Name Value Range Interpretation Code Description Data Becka rce(s) Supporting Document(s) TROPONIN T <0.01 NG/ML 0.00 - 0.10 [facility] TROPONIN T0.1 ng/ml Recommended as the c linical threshold value [facility] ID Date Data Source [id number] 09/01/2020 04:58:00 PM EST [facility] Name Value Range Interpretation Code Description Data Becka rce(s) Supporting Document(s) CBC W/AUTOMATED DIFF [facility] COMPLETE BLOOD COUNT Leukocytes [#/volume] in Blood by Automated count 8.8 10^3/uL 4.2 - 1 1.0 [facility] Erythrocytes [#/volume] in Blood by Automated count 5.47 10^6/uL 4. 50 - 6.30 [facility] Hemoglobin [Mass/volume] in Blood 15.9 g/dL 14.0 - 16.0 [facility] Hematocrit [Volume Fraction] of Blood by Automated count 44.5 % 4 1.0 - 51.0 [facility] Erythrocyte mean corpuscular volume [Entitic volume] by Auto mated count 81.4 fL 80.0 - 94.0 [facility] Erythrocyte mean corpuscular hemoglobin [Entitic mass] by Automated count 29.1 pg 27.0 - 34.0 [facility] Erythrocyte mean corpuscular hemoglobin concentration [Mass/volume] by Automated count 35.7 g/dL 31.0 - 36.0 [facility] Erythrocyte distribution width [Ratio] by Automated count 11.0 % 11.5 - 14.8 L [facility] Platelets [#/volume] in Blood by Automated count 275 10^3/uL 150 - 45 0 [facility] Platelet mean volume [Entitic volume] in Blood by Automated count 9.8 fL 7.4 - 10.4 [facility] Neutrophils/100 leukocytes in Blood by Automated count 79.0 % 37. 0 - 80.0 [facility] Lymphocytes/100 leukocytes in Blood by Manual count 13.5 % 25.0 - 40.0 L [facility] Monocytes/100 leukocytes in Blood by Automated count 6.7 % 3.0 - 8.0 [facility] Eosinophils/100 leukocytes in Blood by Automated count 0.2 % 0.0 - 7.0 [facility] Basophils/100 leukocytes in Blood by Automated count 0.3 % 0.0 - 2.0 [facility] %IG 0.3 % 0.0 - 0.[address] [facility] %NRBC 0.0 % 0.0 - 0.0 [facility] al Neutrophils [#/volume] in Blood by Automated count 6.93 10^3/uL 2.00 - 6.90 H [facility] Lymphocytes [#/volume] in Blood by Automated count 1.19 10^3/uL 0.60 - 3.40 [facility] Monocytes [#/volume] in Blood by Automated count 0.59 10^3/uL 0.00 - 0.90 [facility] Eosinophils [#/volume] in Blood by Automated count 0.02 10^3/uL 0.00 - 0.70 [facility] Basophils [#/volume] in Blood by Automated count 0.03 10^3/uL 0.00 - 0.20 [facility] #IG 0.03 10^3/uL 0.00 - 0.10 [facility] #NRBC 0.00 10^3/uL 0.00 - 0.00 [facility] MANUAL DIFF NOT INDICATED [facility] RBC MORPH NOT INDICATED [facility] Procedure Vital Signs ID Date Data Source UNK Name Value Range Interpretation Code Description Data Source(s) Body temperature 97.9 [degF] 97.9 [degF] [facility] ([facility]) Body weight 90.266 kg 90.266 kg [facility] Body mass index (BMI) [Ratio] 28.6 kg/m2 28.6 k g/m2 [facility] ([facility]) Heart rate 71 /min 71 /min [facility] Diastolic blood pressure 75 mm[Hg] 75 mm[Hg] [facility] ([facility]) Systolic blood pressure 133 mm[Hg] 133 mm[Hg] [facility] ([facility]) Body weight 199.00 [lb_av] 199.00 [lb_av] [facility] ([facility]) Body height 70 [in_i] 70 [in_i] [facility] 5'10"
[2020-11-04] MEDS ORDERED: CARA1TAB6 PO (23:03)
--- NOTE | 2020-11-05 05:34 | ECGEPIP ---
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
== END 2020-11-04 23:12 | disposition home or self-care (01) ==
LOC: M ED 20:49
DX: R10.13 Epigastric pain (principal); R11.0 Nausea